=== PATIENT | female | born 1965 | race Caucasian/White ===

== ENCOUNTER 2018-05-01 05:40 | Day surgery (SDC) | payer OTHER ==
[~2018-05-01] VITALS: Ht 162.6 cm; Wt 95.3 kg
[2018-05-01] MEDS ORDERED: GLIP10TA3 PO (07:28)
[2018-05-01] MEDS ORDERED: METF850T PO (07:28)
[2018-05-01] MEDS ORDERED: PROPOFOL 200 MG/20 ML VIAL IV ONE (08:01)
[2018-05-01] MEDS ORDERED: ONDANSETRON 4 MG/2 ML VIAL ONE (08:01)
[2018-05-01] MEDS ORDERED: DESFLURANE 240 ML BTL INH ONE (08:01)
[2018-05-01] MEDS ORDERED: ROCURONIUM 50 MG/5 ML VIAL IV ONE (08:01)
[2018-05-01] MEDS ORDERED: BUPIVACAINE-MPF/EPI 0.25% 30 ML VIAL INJ ONE (08:07)
[2018-05-01] MEDS ORDERED: ceFAZolin 1,000 MG VIAL ONE (08:08)
[2018-05-01] MEDS ORDERED: HYDROmorphone PFS 2 MG/ML SYR ONE (08:08)
[2018-05-01] MEDS ORDERED: fentaNYL 0.05 MG/ML VIAL ONE (08:08)
[2018-05-01] MEDS ORDERED: NACL 0.9% 1,000 ML IV SCH (09:34)
[2018-05-01] MEDS ORDERED: HYDROcodone/APAP 5/325 MG 1 TAB TAB PO PRN (09:35)
[2018-05-01] MEDS ORDERED: HYDROmorphone 1 MG/ML AMP IVP PRN (09:35)
[2018-05-01] MEDS ORDERED: MORPHINE SULFATE 4 MG/ML SYR IV PRN (09:35)
[2018-05-01] MEDS ORDERED: MORPHINE SULFATE 2 MG/ML SYR IVP PRN (09:35)
[2018-05-01] MEDS ORDERED: ONDANSETRON 4 MG/2 ML VIAL IV PRN (09:35)
== END 2018-05-01 11:50 | disposition home or self-care (01) ==
LOC: MDS 05:40 → MMU 05:56 → MDS 11:50
PROVIDERS: ATTEND Surgery
DX: K42.9 Umbilical hernia without obstruction or gangrene (principal); E11.9 Type 2 diabetes mellitus without complications; I10 Essential (primary) hypertension; E66.9 Obesity, unspecified; Z68.36 Body mass index [BMI] 36.0-36.9, adult; M86.9 Osteomyelitis, unspecified; F17.210 Nicotine dependence, cigarettes, uncomplicated; Z90.49 Acquired absence of other specified parts of digestive tract; Z98.890 Other specified postprocedural states; Z79.84 Long term (current) use of oral hypoglycemic drugs; Z79.899 Other long term (current) drug therapy
CPT/HCPCS: 49585; 71045; 82948; 93005; C1781; J0690; J1170; J2405; J2704; J3010; J3490; J7030; J7060

== ENCOUNTER 2024-03-18 10:19 | Day surgery (SDC) | payer OTHER ==
[~2024-03-18] VITALS: Ht 162.6 cm; Wt 103.0 kg
[~2024-03-18 10:19] MED LIST: GLIP10TA3 PO; METF-713 PO
[2024-03-18] MEDS ORDERED: fentaNYL citrate 0.05 MG/ML VIAL ONE (12:08)
[2024-03-18] MEDS ORDERED: KETOROLAC 30 MG/ML VIAL ONE (12:12)
[2024-03-18] MEDS: KETOROLAC 30 MG/ML VIAL IVP ONE (12:13)
[2024-03-18] MEDS: LIDOCAINE 2% 100 MG/5 ML UJET TP ONE (12:16)
== END 2024-03-18 13:05 | disposition home or self-care (01) ==
LOC: MDS 10:19 → MMU 10:23 → MDS 13:05
PROVIDERS: ATTEND Internal Medicine Gastroenterology
DX: R19.5 Other fecal abnormalities (principal); R19.7 Diarrhea, unspecified; N39.41 Urge incontinence; I10 Essential (primary) hypertension; E11.40 Type 2 diabetes mellitus with diabetic neuropathy, unspecified; Z90.49 Acquired absence of other specified parts of digestive tract; Z98.890 Other specified postprocedural states
CPT/HCPCS: 45331; 82948; 88305; J1885; 45330; J3010